=== PATIENT | female | born 1995 | race Caucasian/White ===

== ENCOUNTER 2017-08-06 22:24 | Emergency (ER) | payer SELFPAY ==
[2017-08-06 22:47] VITALS: BP 108/68; PULSE 81; TEMP 98.3; O2SAT 99
[2017-08-06 23:18] LABS: RBC URINE 4 /hpf (0-3); URINE BACTERIA OCC (<OCC); URINE BILIRUBIN NEGATIVE (NEGATIVE); URINE BLOOD 1+ (NEGATIVE); URINE COLOR Yellow (YELLOW); URINE GLUCOSE (UA) NORMAL (Normal); URINE KETONE 1+ mg/dL (NEGATIVE); URINE LEUKOCYTE ESTERASE NEG Leu/uL (Negative); URINE PROTEIN NEGATIVE (NEGATIVE); URINE UROBILINOGEN NORMAL mg/dL (0.2-1.0); WBC URINE 2 /hpf (0-5)
--- NOTE | 2017-08-06 23:31 | C.PDOC ---
History Of Present Illness 22 year old female presents to the ED for evaluation of epigastric abdominal pain which has been intermittent for around 1 year. Patient reports she was diagnosed with H. Pylori around 1 year ago and completed the medication treatments that were prescribed to her. Patient states she is asymptomatic in the ED and denies fever, chills, diarrhea at this time. Time Seen by Provider: 08/06/17 23:01 Chief Complaint (Nursing): Abdominal Pain History Per: Patient History/Exam Limitations: no limitations Onset/Duration Of Symptoms: Intermittent Episodes (around 1 year ) Current Symptoms Are (Timing): Still Present Location Of Pain/Discomfort: Epigastric Radiation Of Pain To:: None Quality Of Discomfort: "Pain" Associated Symptoms: denies: Fever, Chills, Diarrhea Additional History Per: Patient Abnormal Vaginal Bleeding: No Past Medical History Reviewed: Historical Data, Nursing Documentation, Vital Signs Vital Signs: Last Vital Signs Temp 98.3 F 08/06/17 22:43 Pulse 81 08/06/17 22:43 Resp 20 08/07/17 00:01 BP 108/68 08/06/17 22:43 Pulse Ox 99 08/07/17 03:07 - Medical History PMH: No Chronic Diseases Denies: Chronic Kidney Disease Surgical History: No Surg Hx - [facility] Procedures APPLICATION OF SPLINT (04/02/14) Family History: States: Unknown Family Hx - Social History Hx Tobacco Use: No Hx Alcohol Use: No Hx Substance Use: No - Immunization History Hx Tetanus Toxoid Vaccination: Yes Hx Influenza Vaccination: Yes Hx Pneumococcal Vaccination: Yes Review Of Systems Constitutional: Negative for: Fever, Chills Gastrointestinal: Positive for: Vomiting, Abdominal Pain (epigastric ). Negative for: Diarrhea Physical Exam - Physical Exam Appears: Non-toxic, No Acute Distress Skin: Normal Color, Warm, Dry Oral Mucosa: Moist Neck: Supple Cardiovascular: Rhythm Regular Respiratory: Normal Breath Sounds Gastrointestinal/Abdominal: Soft, No Tenderness, No Guarding, No Rebound Extremity: Normal ROM, Capillary Refill (less than 2 seconds ) Neurological/Psych: Oriented x3, Normal Speech, Normal Cognition ED Course And Treatment O2 Sat by Pulse Oximetry: 99 (on RA) Pulse Ox Interpretation: Normal Progress Note: UA ordered and reviewed. Pepcid PO administered. On reassesment , patient is resting comfortably, showing no signs of distress and reports an improvement in her symptoms. Patient is stable for discharge. Patient is advised on dietary changes and will be given Rx for antacids. Advised to follow up with PMD within 1-2 days for further evaluation and/or return to the ED if symptoms persist or worsen. Disposition Counseled Patient/Family Regarding: Diagnosis, Need For Followup, Rx Given - Disposition Referrals: [facility] [Outside] [facility] [Outside] Disposition: HOME/ ROUTINE Disposition Time: 23:29 Condition: STABLE Additional Instructions: Avoid dairy, fried foods, red meat, caffeine Take meds as prescribed Follow up in medical clinic Return to ER if worse Prescriptions: Famotidine [Pepcid] 20 mg PO DAILY #20 tab Ondansetron [Zofran Odt] 4 mg PO TID #7 odt Instructions: Gastritis (ED) Forms: [facility] (Slovak) - Clinical Impression Clinical Impression: Chronic epigastric pain, Nausea - PA / TEACHER EMOTIONALLY IMPAIRED / Resident Statement MD/DO has reviewed & agrees with the documentation as recorded. - Scribe Statement The provider has reviewed the documentation as recorded by the Scribe (Tati Dunaway) All medical record entries made by the Scribe were at my direction and personally dictated by me. I have reviewed the chart and agree that the record accurately reflects my personal performance of the history, physical exam, medical decision making, and the department course for this patient. I have also personally directed, reviewed, and agree with the discharge instructions and disposition.
[2017-08-07 00:02] VITALS: RESP 20
== END 2017-08-07 00:01 | disposition home or self-care (01) ==
LOC: C.ER 22:24
DX: G89.29 Other chronic pain (principal); R10.13 Epigastric pain; R11.0 Nausea